=== PATIENT | female | born 1965 | race Caucasian/White ===

== ENCOUNTER 2019-02-05 14:07 | Emergency (ER) | payer OTHER ==
[~2019-02-05] VITALS: Wt 59.9 kg
[2019-02-05 16:14] VITALS: BP 118/68; PULSE 64; RESP 20
== END 2019-02-05 16:48 | disposition left against medical advice (07) ==
LOC: E/R 14:07
DX: R51 Headache (principal); R53.1 Weakness; R40.2142 Coma scale, eyes open, spontaneous, at arrival to emergency department; R40.2252 Coma scale, best verbal response, oriented, at arrival to emergency department; R40.2362 Coma scale, best motor response, obeys commands, at arrival to emergency department
CPT/HCPCS: 80048; 82962; 84443; 85025; 93005; Z7502